=== PATIENT | female | born 1985 | race Caucasian/White ===

== ENCOUNTER 2021-03-12 17:26 | Emergency (ER) | payer OTHER ==
[2021-03-12 18:26] LABS: INFLUENZA A NAA NEGATIVE (NEGATIVE)
[2021-03-12 18:35] LABS: CORONAVIRUS 2019 SARS-COV-2 POSITIVE (NEGATIVE)
== END 2021-03-12 18:54 | disposition home or self-care (01) ==
LOC: FER 17:26
PROVIDERS: Nurse Practitioner Family
DX: U07.1 COVID-19 (principal)
CPT/HCPCS: 99283; U0002